=== PATIENT | female | born 2005 ===

== ENCOUNTER 2024-02-07 09:32 | Emergency (ER) | payer BC ==
[2024-02-07] MEDS ORDERED: Sodium Chloride 0.9% 10 ML Syringe FLUSH PRN (09:46)
[2024-02-07] MEDS ORDERED: Sodium Chloride 0.9% 2.5 ML Syringe FLUSH PRN (09:46)
[2024-02-07] MEDS: Sodium Chloride 0.9% 1,000 ML IV ONE (09:53)
[2024-02-07 10:11] LABS: BASOPHILS ABSOLUTE AUTO 0.05 K/uL (0.00-0.30); BASOPHILS PERCENT AUTO 0.7 % (0.0-1.0); EOSINOPHILS ABSOLUTE AUTO 0.08 K/uL (0.00-0.70); EOSINOPHILS PERCENT AUTO 1.2 % (0.0-5.0); HEMATOCRIT 43.5 % (37.0-47.0); HEMOGLOBIN 14.9 g/dL (12.0-16.0); IMMATURE GRAN ABSOLUTE AUTO 0.01 K/uL (0.00-0.05); IMMATURE GRAN PERCENT AUTO 0.1 % (0.0-0.4); LYMPHOCYTES ABSOLUTE AUTO 1.93 K/uL (2.00-8.80); LYMPHOCYTES PERCENT AUTO 27.8 % (50.0-65.0); MEAN CORPUSCULAR HEMOGLOBIN 30.6 pg (28.0-32.0); MEAN CORPUSCULAR HGB CONC 34.3 g/dL (32.0-36.0); MEAN CORPUSCULAR VOLUME 89.3 fL (83.0-99.0); MEAN PLATELET VOLUME 9.5 fL (9.4-12.3); MONOCYTES ABSOLUTE AUTO 0.47 K/uL (0.10-1.40); MONOCYTES PERCENT AUTO 6.8 % (2.0-10.0); NEUTROPHILS ABSOLUTE AUTO 4.39 K/uL (1.50-8.50); NEUTROPHILS PERCENT AUTO 63.4 % (35.0-45.0); PLATELET COUNT,PLT 305 K/uL (150-400); RED BLOOD CELL COUNT 4.87 M/uL (4.10-5.30); WHITE BLOOD CELL COUNT,WBC 6.93 K/uL (4.5-13.5)
[2024-02-07 10:36] LABS: A/G RATIO 1.3 (0.9-1.6); ALBUMIN 4.2 g/dL (3.4-5.0); BILIRUBIN TOTAL 0.3 mg/dL (0.2-1.0); CALCIUM 9.7 mg/dL (8.5-10.1); CARBON DIOXIDE,CO2 29.4 mmol/L (21.0-32.0); CREATININE 0.8 mg/dL (0.6-1.0); EST CRCL DRUG DOSING (CG) 109.99 mL/min; POTASSIUM,K 3.9 mmol/L (3.5-5.1); PROTEIN TOTAL,TP 7.4 g/dL (6.4-8.2)
== END 2024-02-07 11:46 | disposition home or self-care (01) ==
LOC: MW.ED 09:32
DX: R55 Syncope and collapse (principal)
CPT/HCPCS: 36415; 80053; 81025; 85025; 93005; 93010; 99282; 99284

== ENCOUNTER 2024-02-25 11:47 | Emergency (ER) | payer BC | END 2024-02-25 12:20 | disposition home or self-care (01) | LOC: MW.ED 11:47 | DX: J32.8 Other chronic sinusitis (principal); B96.89 Other specified bacterial agents as the cause of diseases classified elsewhere; Z79.899 Other long term (current) drug therapy; Z75.8 Other problems related to medical facilities and other health care | CPT/HCPCS: 99283 ==